=== PATIENT | female | born 1975 | race Two or more races ===

== ENCOUNTER 2017-12-11 15:55 | Emergency (ER) | payer OTHER, SELFPAY ==
[~2017-12-11] VITALS: Ht 152.4 cm; Wt 62.3 kg
[2017-12-11 16:38] LABS: BASOPHILS # (AUTO) 0.02 x10^3/uL (0-0.1); BASOPHILS % (AUTO) 0 % (0-1); EOSINOPHILS # (AUTO) 0.72 x10^3/uL (0-0.4); EOSINOPHILS % (AUTO) 9 % (1-7); LYMPHOCYTES # (AUTO) 2.02 x10^3/uL (1-3.4); LYMPHOCYTES % (AUTO) 24 % (22-44); MD NO; MEAN CORPUSCULAR HEMOGLOBIN 31.4 pg (27.0-34.8); MEAN CORPUSCULAR HGB CONC 33.9 g/dL (32.4-35.8); MEAN CORPUSCULAR VOLUME 92.5 fL (80-100); MONOCYTES # (AUTO) 0.55 x10^3/uL (0.2-0.8); MONOCYTES % (AUTO) 7 % (2-9); NEUTROPHILS # (AUTO) 4.98 x10^3/uL (1.8-6.8); NEUTROPHILS % (AUTO) 60 % (42-75); PLATELET COUNT 253 x10^3/uL (130-400); RED CELL DISTRIBUTION WIDTH 13.4 % (9.6-15.2)
[2017-12-11 16:42] LABS: ALBUMIN 4.3 g/dL (3.4-5.0); ANION GAP 10 mmol/L (5-15); CHLORIDE 108 mmol/L (98-107)
[2017-12-11 16:47] LABS: ALANINE AMINOTRANSFERASE 50 U/L (12-78); ALKALINE PHOSPHATASE 85 U/L (45-117); BILIRUBIN,TOTAL 0.3 mg/dL (0.2-1.0); CREATININE 0.79 mg/dL (0.55-1.02); TOTAL PROTEIN 8.3 g/dL (6.4-8.2)
[2017-12-11] MEDS ORDERED: MAALOX/HYOSCYAMINE/LIDOCAINE 45 ML BTL PO ONE (17:00)
[2017-12-11] MEDS ORDERED: LORazepam 1MG TABLET PO ONE (17:00)
[2017-12-11] MEDS ORDERED: MULTIVITAMIN (17:04)
[2017-12-11] MEDS ORDERED: MAALOX/HYOSCYAMINE/LIDOCAINE 45 ML BTL ONE (17:11)
[2017-12-11] MEDS ORDERED: PLEASE ENTER ALLERGIES MC SCH (17:30)
[2017-12-11] MEDS ORDERED: LORazepam 1MG TABLET ONE (18:42)
[2017-12-11 19:37] VITALS: BP 107/69
[2017-12-11 19:57] LABS: MICROSCOPIC AUTO
[2017-12-11 19:58] LABS: CULTURE INDICATED? YES
== END 2017-12-11 20:18 | disposition home or self-care (01) ==
LOC: ED 20:12
DX: R10.13 Epigastric pain (principal); R06.02 Shortness of breath
CPT/HCPCS: 36415; 71045; 80053; 81001; 83690; 84703; 85025; 87086; 93005; 99285